=== PATIENT | female | born 1990 | race Caucasian/White ===

== ENCOUNTER 2019-11-08 10:04 | Emergency (ER) | payer MEDICARE, MEDICAID, SELFPAY ==
[2019-11-08 10:19] VITALS: BP 111/61; PULSE 82; RESP 18; TEMP 36.7; O2SAT 98; BMI 31.4
--- NOTE | 2019-11-08 10:32 | ED_ITS ---
HPI - Abdominal Pain General: Chief Complaint: Abdominal Pain Stated Complaint: BACK AND ABD PAIN Time Seen by Provider: 11/08/19 10:15 Source: patient Mode of arrival: ambulatory Limitations: no limitations History of Present Illness: HPI narrative: Patient is a 29-year-old female who presents to ED today with a complaint of lower abdominal/pelvic pain. Patient tells me the pain has been present intermittently for several months now. She states she has irregular menstrual cycles and will often bleed 2-3 times per month. She states with each beginning of her bleeding, she will have lower abdominal/pelvic cramping. She states at one point she was seen by a emergency department physician who diagnosed her with endometriosis. She reports taking OTC menstrual relief for her pain. Patient is not having any vaginal discharge or odor. She denies new sexual partners. She states when she is not on her menstrual cycle, she does not experience pain. She does not complain of dysuria, urinary urgency, frequency today. Her bowel movements have been normal. She has not been running fevers. Onset (ago): month(s) Pain Consistency: intermittent Location: Other (lower abdomen ) Associated Symptoms: Denies change in bowel habits, chills, diarrhea, dysuria, fever(s), nausea and vomiting Related Data: Date of Last Menstrual Period: 11/08/19 Patient : No Review of Systems Const: Denies: fever(s), chills, body aches, fatigue or malaise Eyes: Denies: change in vision or blurry vision Card: Denies: chest pain Resp: Denies: dyspnea GI: Reports: abdominal pain; Denies: nausea, vomiting, diarrhea or change in bowel habits : Reports: vaginal bleeding, metrorrhagia and pelvic pain; Denies: flank pain, difficulty voiding, dysuria, urinary frequency, urinary urgency, genital lesions, genital pruritis, vaginal odor or vaginal discharge Musc: Denies: neck pain, back pain, extremity pain or extremity swelling Skin/Breast: Denies: rash Neuro: Denies: headache(s), numbness in extremities, weakness in extremities or sensory changes FOR[facility] ED Female Reproductive History: Date of last menstrual period: 11/08/19 Physical Exam Const: COMMON NORMALS: no acute distress, patient oriented x3, no limitations and alert ORIENTATION/CONSCIOUSNESS: Yes oriented to person, Yes oriented to place and Yes oriented to time Resp: COMMON NORMALS: normal respiratory effort and clear to auscultation bilaterally AUSCULTATION: clear to auscultation bilaterally Cardio: COMMON NORMALS: regular rate and regular rhythm RATE: regular rate RHYTHM: regular rhythm GI: COMMON NORMALS: Normal to inspection, nondistended, normoactive bowel sounds present, Soft to palpation, No hepatosplenomegaly present and no masses PALPATION: Yes Soft to palpation, Yes Tenderness to palpation present (GI) (throughout lower abdomen ) and Yes No hepatosplenomegaly present : COMMON NORMALS: Yes no CVA tenderness BLADDER/KIDNEY EXAM: Yes no CVA tenderness Back/Pelvis: COMMON NORMALS: no CVA tenderness Extremity: COMMON NORMALS: normal to inspection Neuro: COMMON NORMALS: patient oriented x3 SENSORIUM/ORIENTATION: Yes alert, Yes oriented to person, Yes oriented to place and Yes oriented to time Skin: COMMON NORMALS: no rashes or lesions noted GENERAL SKIN EXAM: no rash es or lesions noted Course Vital Signs: Vital signs: Vital Signs Temperature 98.1 F 11/08/19 10:19 Pulse Rate 77 11/08/19 11:52 Respiratory Rate 16 11/08/19 11:52 Blood Pressure 96/69 11/08/19 11:52 Pulse Oximetry 98 11/08/19 11:52 MDM - Abdominal Pain MDM Narrative: Medical decision making narrative: Patient's labs are non-concerning at this time. She is on several different medications (approximately 15) for various disorders. I will have her follow-up with gynecology so they may determine the best course for patient including pharmacological therapy. Lab Data: Labs: Lab Results 11/08/19 11/08/19 11/08/19 Range/Units 10:39 10:58 10:58 WBC 7.5 (4.0-10.0) 10^3/ uL RBC 4.41 (4.1-5.3) 10^6/u L Hgb 13.8 (11.5-15.3) g/dL Hct 42.6 (37.0-47.0) % MCV 96.6 (81-99) fL MCH 31.3 (28.0-34.0) pg MCHC 32.4 (30.0-36.0) g/dL RDW 14.0 (12.1-15.1) % Plt Count 304 (130-400) 10^3/c mm MPV 10.4 (7.4-10.4) fL Neut % (Auto) 56.4 % Lymph % (Auto) 32.1 % Brown % (Auto) 6.8 % Eos % (Auto) 3.5 % Baso % (Auto) 0.8 % Neut # (Auto) 4.21 (1.8-7.7) 10^3/u L Lymph # (Auto) 2.4 (0.8-4.8) 10^3/u L Brown # (Auto) 0.5 (0.2-0.9) 10^3/u L Eos # (Auto) 0.3 (0.0-0.8) 10^3/u L Baso # (Auto) 0.1 (0.0-0.1) 10^3/u L Nucleated RBC % (a uto) 0 % Nucleated RBCs # 0.0 /100WBC Sodium 140 (136-145) mmol/L Potassium 4.0 (3.5-5.1) mmol/L Chloride 110 H (98-107) mmol/L Carbon Dioxide 21 L (22-29) mmol/L Anion Gap 13.0 (5-19) BUN 14 (6-20) mg/dL Creatinine 0.6 (0.5-0.9) mg/dL GFR Calculation 116.6 (90-130) mL/min Glucose 70 (65-115) mg/dL Calculated Osmolal ity 285 (285-295) mOsm/k g Calcium 8.7 (8.5-10.5) mg/dL Total Bilirubin 0.2 (0.15-1.2) mg/dL AST 8 (0-32) U/L ALT 7 (0-33) U/L Alkaline Phosphata se 61 (35-105) IU/L Total Protein 7.2 (6.6-8.7) g/dL Albumin 4.4 (3.5-5.2) g/dL Globulin 2.8 (1.3-4.6) g/dL HCG, Qual (Negative) Urine Color Yellow (Yellow) Urine Appearance Hazy A (CLEAR) Urine pH 5 (5-7) Ur Specific Gravit y 1.020 (1.005-1.030) Urine Protein Neg (Negative) Urine Glucose (UA) Norm (Normal) Urine Ketones Negative (Negative) Urine Blood 3+ H (Negative) Urine Nitrate Negative (Negative) Urine Bilirubin Neg (NEGATIVE) Urine Urobilinogen Neg (Negative) mg/dL Ur Leukocyte Adali ase Negative (Negative) Urine RBC >100 H (0-2) /hpf Urine WBC 0-4 H (0-5) /hpf Ur Squamous Epith Cells 0-4 H (0-5) Amorphous Sediment Not Reportable Urine Bacteria 1+ H (NONE) 11/08/19 Range/Units 10:58 WBC (4.0-10.0) 10^3/ uL RBC (4.1-5.3) 10^6/u L Hgb (11.5-15.3) g/dL Hct (37.0-47.0) % MCV (81-99) fL MCH (28.0-34.0) pg MCHC (30.0-36.0) g/dL RDW (12.1-15.1) % Plt Count (130-400) 10^3/c mm MPV (7.4-10.4) fL Neut % (Auto) % Lymph % (Auto) % Brown % (Auto) % Eos % (Auto) % Baso % (Auto) % Neut # (Auto) (1.8-7.7) 10^3/u L Lymph # (Auto) (0.8-4.8) 10^3/u L Brown # (Auto) (0.2-0.9) 10^3/u L Eos # (Auto) (0.0-0.8) 10^3/u L Baso # (Auto) (0.0-0.1) 10^3/u L Nucleated RBC % (a uto) % Nucleated RBCs # /100WBC Sodium (136-145) mmol/L Potassium (3.5-5.1) mmol/L Chloride (98-107) mmol/L Carbon Dioxide (22-29) mmol/L Anion Gap (5-19) BUN (6-20) mg/dL Creatinine (0.5-0.9) mg/dL GFR Calculation (90-130) mL/min Glucose (65-115) mg/dL Calculated Osmolal ity (285-295) mOsm/k g Calcium (8.5-10.5) mg/dL Total Bilirubin (0.15-1.2) mg/dL AST (0-32) U/L ALT (0-33) U/L Alkaline Phosphata se (35-105) IU/L Total Protein (6.6-8.7) g/dL Albumin (3.5-5.2) g/dL Globulin (1.3-4.6) g/dL HCG, Qual Negative (Negative) Urine Color (Yellow) Urine Appearance (CLEAR) Urine pH (5-7) Ur Specific Gravit y (1.005-1.030) Urine Protein (Negative) Urine Glucose (UA) (Normal) Urine Ketones (Negative) Urine Blood (Negative) Urine Nitrate (Negative) Urine Bilirubin (NEGATIVE) Urine Urobilinogen (Negative) mg/dL Ur Leukocyte Adali ase (Negative) Urine RBC (0-2) /hpf Urine WBC (0-5) /hpf Ur Squamous Epith Cells (0-5) Amorphous Sediment Urine Bacteria (NONE) Imaging Data ^: US transvaginal : Radiologist's impression: [place] [address] Ultrasound Report Signed Patient: Nadege Rivera #: [id number] : 1990Acct#:[id number] Age/Sex: Date: 11/08/19 [facility] Attending Dr: Ordering Provider/Ordering MD: Jeniffer Ritter Date of Service: 11/08/19 Procedure(s): US transvaginal [id number] Accession Number(s): [id number] Report Number: [id number] WS: [id number] TRANSVAGINAL PELVIC ULTRASOUND HISTORY: pelvic pain; hx of endometriosis COMPARISON: None available. Uterus: 8.4 cm x 4.5 cm x 4.2 cm. Normal anteverted uterus. No fibroid or mass. Endometrium: 0.8 cm. Normal endometrium. Normal vascularity. Right ovary: 2.6 cm x 2.5 cm x 1.3 cm. Normal size ovary. No adnexal masses. Left ovary: 3.1 cm x 3.1 cm x 1.8 cm. Normal size ovary. No adnexal masses. No free fluid. US/US transvaginal [id number] IMPRESSION: Normal pelvic ultrasound. No endometriomas identified. Dictated By:Wendy Mancia DO Signed By:Wendy Mancia DOSigned Date/Time:11/08/19 1149 DD/ 1147 Discharge Plan Discharge Patient Disposition: Home Clinical Impression: Dysmenorrhea Condition: Stable Prescriptions: No Action metformin 500 mg tablet 250 mg PO BID RF: 0 levothyroxine 137 mcg tablet 137 mcg PO DAILY RF: 0 albuterol sulfate 2.5 mg /3 mL (0.083 %) solution for nebulization 2.5 mg inhalation Q8H PRN (Reason: Shortness Of Breath) RF: 0 tizanidine 4 mg tablet 4 mg PO TID PRN (Reason: Muscle Pain) RF: 0 levetiracetam 500 mg tablet 500 mg PO BID RF: 0 ondansetron HCl 4 mg tablet 4 mg PO Q8H PRN (Reason: Nausea) RF: 0 clonazepam 0.5 mg tablet 0.5 mg PO BID RF: 0 zonisamide 100 mg capsule 100 mg PO DAILY RF: 0 trazodone 100 mg tablet 150 mg PO BEDTIME RF: 0 pantoprazole 40 mg tablet,delayed release (DR/EC) 40 mg PO BID RF: 0 montelukast 10 mg tablet 10 mg PO DAILY RF: 0 EpiPen 0.3 mg/0.3 mL Auto-Injector 0.3 mg IM Q10M PRN (Reason: Allergic Reaction) RF: 0 topiramate 100 mg tablet 100 mg PO BID RF: 0 pregabalin 300 mg capsule 300 mg PO BID RF: 0 Latuda 40 mg tablet 60 mg PO DAILY RF: 0 Linzess 290 mcg capsule 290 mcg PO DAILY RF: 0 Aptiom 800 mg tablet 800 mg PO DAILY RF: 0 Discharge Orders: Discharge Order (Routine); Ordered 11/08/19 Ordered By: Jeniffer Ritter Patient Instructions: Dysmenorrhea (ED) Activity Restrictions/Additional Instructions: As discussed case management should contact you shortly to set you up with a gynecology follow-up/referral for further management of your discomfort. Discharge Date/Time: 11/08/19 11:52 Coding Level of Care Code ED Security Monitor for Chg Fwd Exam Detailed
[2019-11-08 10:57] LABS: Add Urine Microscopic? YES; Bilirubin Urine Neg (NEGATIVE); Blood Urine 3+ (Negative); Glucose Urine UA Norm (Normal); Ketones Urine Negative (Negative); Leukocyte Esterase Urine Negative (Negative); Nitrate Urine Negative (Negative); Protein Urine Neg (Negative); Urine Appearance Hazy (CLEAR); Urine Color Yellow (Yellow); Urobilinogen Urine Neg (Negative); pH Urine 5 (5-7)
[2019-11-08] MEDS: ondansetron 2 mg/ML SDV 2 mL 4 MG IVP (10:58)
[2019-11-08 10:59] VITALS: RESP 18
[2019-11-08] MEDS: morphine 4 mg/mL SDV 1 mL IVP (10:59)
[2019-11-08 11:02] VITALS: BP 90/72; PULSE 72; RESP 16; O2SAT 98
[2019-11-08 11:07] LABS: Basophils # 0.1 10^3/uL (0.0-0.1); Basophils % 0.8 %; Eosinophils # 0.3 10^3/uL (0.0-0.8); Eosinophils % 3.5 %; Hematocrit 42.6 % (37.0-47.0); Hemoglobin 13.8 g/dL (11.5-15.3); Lymphocytes # 2.4 10^3/uL (0.8-4.8); Lymphocytes % 32.1 %; Mean Corpuscular HGB Conc 32.4 g/dL (30.0-36.0); Mean Corpuscular Hemoglobin 31.3 pg (28.0-34.0); Mean Corpuscular Volume 96.6 fL (81-99); Mean Platelet Volume 10.4 fL (7.4-10.4); Monocytes # 0.5 10^3/uL (0.2-0.9); Monocytes % 6.8 %; Neutrophils # 4.21 10^3/uL (1.8-7.7); Neutrophils % 56.4 %; Nucleated Red Blood Cells % 0 %; Platelet Count 304 10^3/cmm (130-400); Red Blood Count 4.41 10^6/uL (4.1-5.3); White Blood Count 7.5 10^3/uL (4.0-10.0)
[2019-11-08 11:08] LABS: Add Urine Culture? Yes; Bacteria Urine 1+; RBC Urine >100 /hpf (0-2); Squamous Epithelial Cell Urine 0-4 (0-5); WBC Urine 0-4 /hpf (0-5)
[2019-11-08 11:27] LABS: HCG, Serum Qual Negative (Negative)
[2019-11-08 11:29] LABS: Alanine Aminotransferase 7 U/L (0-33); Albumin Level 4.4 g/dL (3.5-5.2); Alkaline Phosphatase 61 IU/L (35-105); Aspartate Amino Transferase 8 U/L (0-32); Blood Urea Nitrogen 14 mg/dL (6-20); Calcium 8.7 mg/dL (8.5-10.5); Carbon Dioxide 21 mmol/L (22-29); Chloride 110 mmol/L (98-107); Globulin 2.8 g/dL (1.3-4.6); Glomerular Filtration Rate 116.6 mL/min (90-130); Glucose 70 mg/dL (65-115); Osmolality Calculated 285 mOsm/kg (285-295); Sodium 140 mmol/L (136-145); Total Bilirubin 0.2 mg/dL (0.15-1.2); Total Protein 7.2 g/dL (6.6-8.7)
[2019-11-08 11:30] VITALS: BP 91/57; PULSE 73; RESP 18; O2SAT 96
[2019-11-08 11:52] VITALS: BP 96/69; PULSE 77; RESP 16; O2SAT 98
--- NOTE | 2019-11-08 12:16 | PC.NURSE ---
Read and agree with assessment
--- NOTE | 2019-11-09 13:58 | DCPLANNER ---
Patient needed follow up appointments with [facility], and a primary care. Patient has a follow up appointment scheduled with [facility] department for Tuesday, November 19, 2019 at 8:[address] George. Patient also has a follow up appointment scheduled with Dr. Estrada for November at 2:40. Patient was called with both appointments.
--- NOTE | 2019-11-22 14:37 | DCPLANNER ---
Patient had a follow up appointment scheduled for 11.19.19 with [facility] - patient did not attend appointment.
== END 2019-11-08 11:52 | disposition home or self-care (01) ==
PROVIDERS: Emergency Provider Physician Assistant
DX: N94.6 Dysmenorrhea, unspecified (principal); Z79.84 Long term (current) use of oral hypoglycemic drugs
CPT/HCPCS: 12345; 76830; 80053; 81001; 84703; 85025; 87086; 96374; 96375; 99283; J2270; J2405

== ENCOUNTER 2019-12-02 14:26 | Emergency (ER) | payer MEDICARE, MEDICAID, SELFPAY ==
[2019-12-02 15:24] VITALS: BP 119/76; PULSE 86; RESP 18; TEMP 36.9; O2SAT 99; BMI 31.1
--- NOTE | 2019-12-02 15:47 | W.ED.FEMALGU ---
HPI - Female Genitourinary General: Chief complaint: Urogenital-Female Stated complaint: lwr abd pain Time Seen by Provider: 12/02/19 15:24 History of Present Illness: HPI Narrative: 29-year-old female come in complaining of low back pain worse with movement and bending she cannot recall any particular trauma or exertional activity that seem to spare it. She was recently swab for COVID is still waiting for the result she has had a lot of malaise and myalgias with it she denies any dysuria urgency or frequency. She initially had some cough but that is also resolved. She is not had any anosmia. She is having her menstrual period now it was a little bit early she is not had a particularly large amount of cramping or pelvic discomfort with this. MD elicited complaint: back pain Onset (ago): day(s) Location of symptoms: low back Severity: moderate Female Urogenital Radiation: Non-Radiating Quality of pain: cramping Consistency: intermittent Vaginal discharge: none Vaginal bleeding: moderate (Typical for usual menstrual cycle) Exacerbating factors: movement and palpation Relieving factors: other (Rest) Associated symptoms: Deny abdominal pain, short of breath, fevers/chills, headache(s), nausea, rash, seizures, syncope, vaginal bleeding, vaginal discharge or weakness Treatment prior to arrival: none Date of Last Menstrual Period: 11/08/19 Review of Systems Const: Denies: fever(s), chills, body aches, change in appetite, fatigue or malaise ENMT: Denies: throat pain, ear or mastoid pain, nasal discharge or nasal congestion Card: Denies: syncope Resp: Denies: dyspnea, productive cough or non-productive cough GI: Denies: abdominal pain or nausea : Denies: vaginal discharge Skin/Breast: Denies: rash or pruritus Neuro: Denies: headache(s) [facility] ED Female Reproductive History: Date of last menstrual period: 11/08/19 Physical Exam Const: COMMON NORMALS: no acute distress GENERAL APPEARANCE: cooperative and comfortable ORIENTATION/CONSCIOUSNESS: Yes awake, Yes oriented to person, Yes oriented to place and Yes oriented to time HENMT: COMMON NORMALS: normocephalic, atraumatic and hearing grossly normal bilaterally HEAD & SCALP: normocephalic and atraumatic Neck/C-Spine: COMMON NORMALS: no JVD Resp: COMMON NORMALS: normal respiratory effort, No retractions, No use of accessory muscles and clear to auscultation bilaterally AUSCULTATION: clear to auscultation bilaterally Cardio: COMMON NORMALS: no JVD, regular rate, regular rhythm and No murmurs present (Cardio) RATE: regular rate RHYTHM: regular rhythm GI: COMMON NORMALS: Soft to palpation and No hepatosplenomegaly present AUSCULTATION: Yes normoactive bowel sounds PALPATION: Yes Soft to palpation, No Tenderness to palpation present (GI), No Guarding due to palpation present (GI) and Yes No hepatosplenomegaly present : SPECULUM EXAM - VAGINA: No vaginal bleeding OB/EXTERNAL & SPECULUM: No vaginal bleeding Back/Pelvis: OTHER: Reproducible with light palpation of the low back paraspinal muscles Extremity: COMMON NORMALS: normal to inspection, capillary refill normal, no clubbing, cyanosis or edema, no calf tenderness and no pedal edema Neuro: SENSORIUM/ORIENTATION: Yes oriented to person, Yes oriented to place and Yes oriented to time Skin: COMMON NORMALS: no rashes or lesions noted GENERAL SKIN EXAM: no rashes or lesions noted Course Vital Signs: Vital signs: Vital Signs Temperature 98.5 F 12/02/19 15:24 Pulse Rate 81 12/02/19 17:15 Respiratory Rate 18 12/02/19 17:15 Blood Pressure 120/76 12/02/19 17:15 Pulse Oximetry 100 12/02/19 17:15 MDM - Female MDM Narrative: Medical decision making narrative: Reviewed the findings with her she does not have a UTI. Suspect her low back pain is musculoskeletal could very well be to the COVID-19 were still waiting for her final results on her swab. Gave her diclofenac to use PRN if worsening or change symptoms return. Lab Data: Labs: Lab Results 12/02/19 12/02/19 12/02/19 Range/Units 15:21 16:00 16:00 HCG, Qual Negative (Negative) Urine Color Yellow Straw (Yellow) Urine Appearance Cloudy Clear (CLEAR) Urine pH 7 7 (5-7) Ur Specific Gravit y 1.020 1.015 (1.005-1.030) Urine Protein Neg Neg (Negative) Urine Glucose (UA) Norm Norm (Normal) Urine Ketones Negative Negative (Negative) Urine Blood 3+ H Neg (Negative) Urine Nitrate Negative Negative (Negative) Urine Bilirubin Neg Neg (Negative) Urine Urobilinogen Norm Norm (Negative) mg/dL Ur Leukocyte Adali ase Negative Negative (Negative) Urine RBC 25-40 H (0-2) /hpf Urine WBC 0-4 H (0-5) /hpf Ur Squamous Epith Cells 5-10 H (0-5) /hpf Amorphous Sediment 3+ /hpf Urine Bacteria 1+ H (NONE) /hpf Discharge Plan Discharge Patient Disposition: Home Clinical Impression: Suspected COVID-19 virus infection, Myalgia, Low back pain Condition: Stable Prescriptions: New diclofenac sodium 75 mg tablet,delayed release (DR/EC) 75 mg PO Q12H PRN (Reason: pain) Qty: 20 RF: 0 No Action doxycycline hyclate 100 mg Capsule 100 mg PO BID RF: 0 metformin 500 mg tablet 500 mg PO BID RF: 0 levothyroxine 137 mcg tablet 137 mcg PO DAILY RF: 0 albuterol sulfate 2.5 mg /3 mL (0.083 %) solution for nebulization 2.5 mg inhalation Q8H PRN (Reason: Shortness Of Breath) RF: 0 tizanidine 4 mg tablet 4 mg PO TID PRN (Reason: Muscle Pain) RF: 0 levetiracetam 500 mg tablet 500 mg PO BID RF: 0 ondansetron HCl 4 mg tablet 4 mg PO Q8H PRN (Reason: Nausea) RF: 0 clonazepam 0.5 mg tablet 0.5 mg PO BID RF: 0 zonisamide 100 mg capsule 100 mg PO DAILY RF: 0 trazodone 100 mg tablet 150 mg PO BEDTIME RF: 0 pantoprazole 40 mg tablet,delayed release (DR/EC) 40 mg PO BID RF: 0 montelukast 10 mg tablet 10 mg PO DAILY RF: 0 epinephrine [EpiPen] 0.3 mg/0.3 mL Auto-Injector 0.3 mg IM Q10M PRN (Reason: Allergic Reaction) RF: 0 topiramate 100 mg tablet 100 mg PO BID RF: 0 pregabalin 300 mg capsule 300 mg PO BID RF: 0 Latuda 40 mg tablet 60 mg PO DAILY RF: 0 Linzess 290 mcg capsule 290 mcg PO DAILY RF: 0 Aptiom 800 mg tablet 800 mg PO DAILY RF: 0 Discharge Orders: Discharge Order (Routine); Ordered 12/02/19 Ordered By: Valentín Flores Activity Restrictions/Additional Instructions: Self quarantine until we receive results back from your [facility] testing. Anti-inflammatories as needed for back pain. Discharge Date/Time: 12/02/19 17:15 Coding Level of Care Code ED Dragline Engineer for Chg Fwd Exam Comprehensive
[2019-12-02 16:18] LABS: Add Urine Microscopic? YES; Bilirubin Urine Neg (Negative); Blood Urine 3+ (Negative); Glucose Urine UA Norm (Normal); Ketones Urine Negative (Negative); Leukocyte Esterase Urine Negative (Negative); Nitrate Urine Negative (Negative); Protein Urine Neg (Negative); Urine Appearance Cloudy (CLEAR); Urine Color Yellow (Yellow); Urobilinogen Urine Norm (Negative); pH Urine 7 (5-7)
[2019-12-02 16:19] LABS: Add Urine Culture? Yes; Amorphous Sediment Urine 3+ /hpf; Bacteria Urine 1+ /hpf; RBC Urine 25-40 /hpf (0-2); WBC Urine 0-4 /hpf (0-5)
[2019-12-02 16:30] VITALS: BP 97/58; PULSE 85; RESP 18; O2SAT 99
[2019-12-02 16:53] LABS: Add Urine Microscopic? NO
[2019-12-02 16:56] LABS: Bilirubin Urine Neg (Negative); Blood Urine Neg (Negative); Glucose Urine UA Norm (Normal); Ketones Urine Negative (Negative); Leukocyte Esterase Urine Negative (Negative); Nitrate Urine Negative (Negative); Protein Urine Neg (Negative); Specific Gravity, Urine 1.015 (1.005-1.030); Urine Appearance Clear (CLEAR); Urine Color Straw (Yellow); Urobilinogen Urine Norm (Negative); pH Urine 7 (5-7)
[2019-12-02 16:58] LABS: HCG Qualitative Urine. Negative (Negative)
[2019-12-02 17:15] VITALS: BP 120/76; PULSE 81; RESP 18; O2SAT 100
== END 2019-12-02 17:15 | disposition home or self-care (01) ==
PROVIDERS: Emergency Provider Family Medicine
DX: M54.5 Low back pain (principal); M79.10 Myalgia, unspecified site; Z20.828 Contact with and (suspected) exposure to other viral communicable diseases; Z79.899 Other long term (current) drug therapy
CPT/HCPCS: 12345; 81001; 81003; 81025; 87086; 99282

== ENCOUNTER → 2020-02-21 14:43 | Outpatient (BNVA) | payer MEDICARE, MEDICAID, SELFPAY | PROVIDERS: Visit Provider Psychiatry & Neurology Psychiatry | DX: F43.12 Post-traumatic stress disorder, chronic (principal); F60.3 Borderline personality disorder; F33.2 Major depressive disorder, recurrent severe without psychotic features; F41.1 Generalized anxiety disorder; F15.21 Other stimulant dependence, in remission; F10.21 Alcohol dependence, in remission; F17.200 Nicotine dependence, unspecified, uncomplicated | CPT/HCPCS: 99204 ==

== ENCOUNTER → 2020-02-26 11:18 | Outpatient (BNVA) | payer MEDICARE, MEDICAID, SELFPAY | PROVIDERS: PCP Family Medicine; Referring Provider Nurse Practitioner Family; Visit Provider Specialist | DX: F44.5 Conversion disorder with seizures or convulsions (principal); G43.711 Chronic migraine without aura, intractable, with status migrainosus; F43.12 Post-traumatic stress disorder, chronic; F17.210 Nicotine dependence, cigarettes, uncomplicated | CPT/HCPCS: 99205 ==

== ENCOUNTER → 2020-03-24 10:37 | Outpatient (BNVA) | payer MEDICARE, MEDICAID, SELFPAY | PROVIDERS: PCP Family Medicine; Visit Provider Obstetrics & Gynecology | DX: Z30.9 Encounter for contraceptive management, unspecified (principal); N94.6 Dysmenorrhea, unspecified; N94.10 Unspecified dyspareunia | CPT/HCPCS: 81025 ==

== ENCOUNTER → 2020-04-03 09:08 | Outpatient (BNVA) | payer MEDICARE, MEDICAID, SELFPAY | PROVIDERS: PCP Family Medicine; Visit Provider Psychiatry & Neurology Psychiatry | DX: F41.1 Generalized anxiety disorder (principal); F33.2 Major depressive disorder, recurrent severe without psychotic features; F17.200 Nicotine dependence, unspecified, uncomplicated; F10.21 Alcohol dependence, in remission; F15.21 Other stimulant dependence, in remission; F60.3 Borderline personality disorder; F43.12 Post-traumatic stress disorder, chronic | CPT/HCPCS: 99214 ==

== ENCOUNTER → 2020-05-01 08:35 | Outpatient (BNVA) | payer MEDICARE, MEDICAID, SELFPAY | PROVIDERS: PCP Family Medicine; Visit Provider Psychiatry & Neurology Psychiatry | DX: F41.1 Generalized anxiety disorder (principal); F33.2 Major depressive disorder, recurrent severe without psychotic features; F43.12 Post-traumatic stress disorder, chronic; F17.200 Nicotine dependence, unspecified, uncomplicated; F15.21 Other stimulant dependence, in remission; F10.21 Alcohol dependence, in remission; F60.3 Borderline personality disorder | CPT/HCPCS: 99214 ==

== ENCOUNTER → 2020-07-10 10:36 | Outpatient (BNVA) | payer MEDICARE, MEDICAID, SELFPAY | PROVIDERS: PCP Family Medicine; Visit Provider Family Medicine | DX: E03.9 Hypothyroidism, unspecified (principal); E11.9 Type 2 diabetes mellitus without complications; B37.0 Candidal stomatitis; Z87.892 Personal history of anaphylaxis; G40.909 Epilepsy, unspecified, not intractable, without status epilepticus; J45.909 Unspecified asthma, uncomplicated; M54.9 Dorsalgia, unspecified; G89.29 Other chronic pain; F41.1 Generalized anxiety disorder; R23.8 Other skin changes; K58.1 Irritable bowel syndrome with constipation; Z91.09 Other allergy status, other than to drugs and biological substances; K21.9 Gastro-esophageal reflux disease without esophagitis; E11.65 Type 2 diabetes mellitus with hyperglycemia; F13.20 Sedative, hypnotic or anxiolytic dependence, uncomplicated; J45.40 Moderate persistent asthma, uncomplicated; M54.40 Lumbago with sciatica, unspecified side; N94.6 Dysmenorrhea, unspecified; Z13.220 Encounter for screening for lipoid disorders; Z13.6 Encounter for screening for cardiovascular disorders; Z79.4 Long term (current) use of insulin | CPT/HCPCS: 80053; 80061; 80307; 83036; 84443; 85025 ==

== ENCOUNTER → 2020-10-20 16:42 | Outpatient (BNVA) | payer MEDICARE, MEDICAID, SELFPAY | PROVIDERS: PCP Family Medicine; Visit Provider Family Medicine | DX: Z79.4 Long term (current) use of insulin (principal); E11.65 Type 2 diabetes mellitus with hyperglycemia; E03.9 Hypothyroidism, unspecified; R29.898 Other symptoms and signs involving the musculoskeletal system; J32.9 Chronic sinusitis, unspecified; B96.89 Other specified bacterial agents as the cause of diseases classified elsewhere; J44.1 Chronic obstructive pulmonary disease with (acute) exacerbation; F41.1 Generalized anxiety disorder; R00.0 Tachycardia, unspecified; R01.1 Cardiac murmur, unspecified; F17.210 Nicotine dependence, cigarettes, uncomplicated | CPT/HCPCS: 80048; 83036; 84443 ==

== ENCOUNTER 2020-11-06 15:08 | Outpatient (CLI) | payer MEDICARE, MEDICAID, SELFPAY ==
--- NOTE | 2020-11-06 15:13 | USCV_ITS ---
Mary Rivera Age: 30 Gender: F : 1990 Exam Date: 11/06/2020 15:43 Ordering Phys: Gabriela Ferrara MD Technologist: Caitlyn Morales [place] [facility] [place]: TACHYCARDIA BP: 120 / 60 HR: 79 Rhythm: Sinus Technical Quality: Adequate MEASUREMENTS (Male / Female) Normal Values 2D ECHO LV Diastolic Diameter PLAX 5.1 cm 4.2 - 5.9 / 3.9 - 5.3 cm LV Systolic Diameter PLAX 3.5 cm IVS Diastolic Thickness 1.4 cm 0.6 - 1.0 / 0.6 - 0.9 cm IVS Systolic Thickness 1.9 cm LVPW Diastolic Thickness 1.4 cm 0.6 - 1.0 / 0.6 - 0.9 cm LVPW Systolic Thickness 1.8 cm LVOT Diameter 2.0 cm LV Ejection Fraction 2D Teich 59.3 % LV Ejection Fraction MOD 2C 64.5 % LV Ejection Fraction 2C AL 65.2 % LA Diameter 3.2 cm LA Width 2.0 cm LA Height 4.0 cm RA Width 3.1 cm RA Height 2.7 cm Aorta at Sinotubular Diameter 2.5 cm M-MODE Aortic Annulus Diameter 2.9 cm LA Ao Ratio MM 1.1 MV E Point Septal Separation 0.4 cm DOPPLER AV Peak Velocity 144.0 cm/s LVOT Peak Velocity 141.0 cm/s AV Area Cont Eq vti 3.1 cm squared AV Area Cont Eq pk 3.1 cm squared MV Peak Velocity 215.0 cm/s MV Area PHT 4.2 cm squared Mitral E to A Ratio 1.6 MV E' Velocity 53.0 cm/s Mitral E to MV E' Ratio 8.3 Mitral E to LV E' Lateral Ratio 8.8 Mitral E to LV E' Septal Ratio 7.8 TR Peak Velocity 199.8 cm/s TR Peak Gradient 16.0 mmHg TR Mean Velocity 105.8 cm/s TR Mean Gradient 4.7 mmHg TR Velocity Time Integral 30.0 cm TV Peak E Velocity 68.0 cm/s Right Atrial Pressure 3.0 mmHg Pulmonary Artery Systolic Pressu 19.0 mmHg PV Peak Velocity 103.0 cm/s RV Acceleration Time 0.0 s RV Ejection Time 0.3 s RV AcT/ET 0.2 FINDINGS Left Ventricle Normal left ventricular size, systolic function and wall thickness, with no regional wall motion abnormalities. Left ventricular ejection fraction is estimated at 60-65 %. Normal diastolic function. Right Ventricle Normal right ventricular size and systolic function. Normal right ventricular systolic pressure. Right Atrium Normal right atrial size. Left Atrium Normal left atrial size. Mitral Valve Structurally normal mitral valve. No mitral valve stenosis. Aortic Valve Structurally normal trileaflet aortic valve. No aortic valve stenosis. Mild aortic valve regurgitation. Tricuspid Valve Structurally normal tricuspid valve. No significant tricuspid valve regurgitation. Pulmonic Valve Structurally normal pulmonic valve. No pulmonary valve stenosis. No significant pulmonary valve regurgitation. Pericardium No pericardial effusion. Aorta Normal size aortic root and proximal ascending aorta. CONCLUSIONS 1. Normal left ventricular size, systolic function and wall thickness, with no regional wall motion abnormalities. Left ventricular ejection fraction is estimated at 60-65 %. Normal diastolic function. 2. Normal right ventricular size and systolic function. 3. Mild aortic valve regurgitation. 4. No prior similar studies to compare. Gaby Gaspar MD (Electronically Signed) Final Date: 08 November 2020 10:59 S
== END 2020-11-06 15:09 | disposition home or self-care (01) ==
LOC: RAD 15:11
PROVIDERS: PCP Family Medicine; Visit Provider Family Medicine
DX: R00.0 Tachycardia, unspecified (principal); R42 Dizziness and giddiness; R01.1 Cardiac murmur, unspecified; I35.1 Nonrheumatic aortic (valve) insufficiency
CPT/HCPCS: 93306

== ENCOUNTER → 2020-11-18 14:11 | Outpatient (BNVA) | payer MEDICARE, MEDICAID, SELFPAY | PROVIDERS: PCP Family Medicine; Referring Provider Family Medicine; Visit Provider Orthopaedic Surgery | DX: M25.569 Pain in unspecified knee (principal); M25.561 Pain in right knee | CPT/HCPCS: 73560; 73565 ==

== ENCOUNTER → 2020-12-09 13:06 | Outpatient (BNVA) | payer MEDICARE, MEDICAID, SELFPAY | PROVIDERS: PCP Family Medicine; Visit Provider Obstetrics & Gynecology | DX: Z30.9 Encounter for contraceptive management, unspecified (principal); N94.6 Dysmenorrhea, unspecified | CPT/HCPCS: 81025 ==

== ENCOUNTER → 2020-12-17 10:12 | Outpatient (BNVA) | payer MEDICARE, MEDICAID, SELFPAY | PROVIDERS: PCP Family Medicine; Referring Provider Specialist; Visit Provider Specialist | DX: R56.9 Unspecified convulsions (principal); F17.210 Nicotine dependence, cigarettes, uncomplicated | CPT/HCPCS: 95816; 96374 ==

== ENCOUNTER → 2021-01-07 12:32 | Outpatient (BNVA) | payer MEDICARE, MEDICAID, SELFPAY | PROVIDERS: PCP Family Medicine; Visit Provider Specialist | DX: G40.909 Epilepsy, unspecified, not intractable, without status epilepticus (principal) | CPT/HCPCS: 99214; 99215 ==

== ENCOUNTER → 2021-01-19 13:55 | Outpatient (BNVA) | payer MEDICARE, MEDICAID, SELFPAY | PROVIDERS: PCP Family Medicine; Visit Provider Family Medicine | DX: E03.9 Hypothyroidism, unspecified (principal); Z79.4 Long term (current) use of insulin; E11.65 Type 2 diabetes mellitus with hyperglycemia | CPT/HCPCS: 80053; 80061; 83036; 84443 ==

== ENCOUNTER 2021-01-28 08:52 | Outpatient (CLI) | payer MEDICARE, MEDICAID, SELFPAY ==
--- NOTE | 2021-01-28 09:30 | MR_ITS ---
WS: [id number] MRI RIGHT KNEE HISTORY: M25.569 - Pain in unspecified knee COMPARISON: Radiograph 11/18/2020 Anterior cruciate ligament: Intact. Posterior cruciate ligament: Intact. Medial collateral ligament: Intact. Posterior lateral corner structures: Intact. Medial menisci: Intact. Normal signal, size and shape. Lateral meniscus: Intact. Normal signal, size and shape. Extensor mechanism: Distal quadriceps tendon and patellar tendons are intact. Fluid and soft tissue: No joint effusion. There is a very tiny amount of fluid in the expected locati on of York's cyst. Osseous and articular structures: Patellofemoral compartment: Very slight lateral subluxation of the patella. There is no marrow edema. The cartilage is intact. Medial compartment: Normal. No marrow edema in the cartilage is intact. Lateral compartment: Very minimal narrowing of the compartment with very superficial thinning of the cartilage with fissuring. MR/MR knee RT wo con* [id number] IMPRESSION: 1. Mild narrowing of the lateral compartment with thinning and fissuring of th e cartilage. 2. Very slight lateral subluxation of the patella.
== END 2021-01-28 08:53 | disposition home or self-care (01) ==
LOC: RADSHAW 08:58
PROVIDERS: PCP Family Medicine; Visit Provider Orthopaedic Surgery
DX: S83.011A Lateral subluxation of right patella, initial encounter (principal); X58.XXXA Exposure to other specified factors, initial encounter
CPT/HCPCS: 73721

== ENCOUNTER → 2021-02-24 08:31 | Outpatient (BNVA) | payer MEDICARE, MEDICAID, SELFPAY | PROVIDERS: PCP Family Medicine; Visit Provider Anesthesiology Pain Medicine | DX: G89.29 Other chronic pain (principal); M54.40 Lumbago with sciatica, unspecified side; M25.561 Pain in right knee; M54.2 Cervicalgia; Z79.899 Other long term (current) drug therapy; F17.200 Nicotine dependence, unspecified, uncomplicated | CPT/HCPCS: 99204 ==